=== PATIENT | male | born 1965 | race Caucasian/White ===

== ENCOUNTER 2016-10-04 07:30 | Emergency (ER) | payer OTHER ==
[~2016-10-04] VITALS: Ht 172.7 cm; Wt 92.7 kg
[~2016-10-04 07:30] MED LIST: FLUO10CA30 PO
[2016-10-04 07:33] VITALS: BP 182/91; PULSE 71; RESP 18; O2SAT 99
[2016-10-04] MEDS ORDERED: 0.9% Sodium Chloride 1,000 ML IV ONE ×2 (07:43→10:25)
[2016-10-04] MEDS ORDERED: Ondansetron 2 mg/mL 2 mL Inj IVPUSH ONE (07:45)
--- NOTE | 2016-10-04 07:46 | ED.REPORT ---
HPI-Abd Pain M 40 and Over Date of Service Oct 04, 2016 ED Provider: Melania Rg MD Pt is a 51 year old male with a history of fibromyalgia and possible gastritis who presents to the ED complaining of vomiting onset 2 days ago. He c/o associated nausea, subjective fever, abdominal pain, and chills. He denies any other symptoms. Pt reports he takes Tramadol and ibuprofen for fibromyalgia, but hasn't in the past couple days. He admits to using THC, but denies alcohol use. Nursing Notes Stated Complaint: NAUSEA Chief Complaint: Male Abdominal Pain Nursing Notes Reviewed: Yes Allergies: Coded Allergies: Penicillins (Verified Allergy, Unknown, 08/11/14) Scheduled Fluoxetine (Prozac) Unknown Strength Capsule 10 MG PO DAILY Ondansetron ODT (Ondansetron ODT) 4 Mg Tab.rapdis 4 MG PO TID Scheduled PRN oxyCODONE-Acetaminophen 5-325 mg (oxyCODONE-Acetaminophen 5-325 mg) 1 Each Tablet 1-2 TAB PO Q6H PRN PRN For Pain General Time Seen by MD: 07:43 Chief Complaint Other (Vomiting) Hx Obtained From: Patient Arrived By: Walk-in Sudden in Onset?: No Onset Occurred: 2 days ago Symptom Duration: Since onset Severity: Current: No pain currently Severity: Maximum: No pain Recent Healthcare: No recent doctor visit, No recent hospitalization Similar Sx Previous: No Past Medical History Past Medical History Notes: Patient seen on 08/11/2014 for abdominal pain thought to have possible gastritis, CT generally negative with incidental left stone, although a slightly enlarged gallbladder was noted without evidence of gallstones on CT. Past Medical History Fibromyalgia Past Surgical History denies Family History Mother of ovarian CA Smoking History Unknown if Ever Smoker Social History Alcohol Use: Denies alcohol use Drug Use: THC Other Social History: Local resident Ambulatory Status Independent Review of Systems Constitutional: Reports: Chills, Denies: Fever (Subjective fever) Respiratory: Denies: Non-productive cough GI: Reports: Abdominal pain, Nausea, Vomiting Complete sys rev & neg: except as marked. Physical Exam Initial Vital Signs Vital Signs (First) Date Time Temp Pulse Resp B/P Pulse Ox O2 Delivery O2 Flow Rate FiO2 10/04/16 07:33 36.8 71 18 182/91 99 10/04/16 08:17 Room Air Initial VS: Reviewed Head / Eyes: Atraumatic, Normocephalic Neck: Supple, Full range of motion Skin: Warm, Dry, No cyanosis Neurologic: Alert, Oriented, Nonfocal Psychiatric: Mood/affect normal, Behavior normal General/Constitutional: Awake, Alert, Cooperative Respiratory / Chest: Atraumatic, Breath sounds NL, Breath sounds = bilat Cardiovascular: Heart rate NL, Regular rhythm, Heart sounds NL Abdomen: Atraumatic, Soft, No guarding, No rebound Moderate tenderness in LUQ and diffuse mild tenderness with hypoactive bowel tones. Back: Atraumatic, Full range of motion, No CVA tenderness Lower Extremity / Pelvis / MS: No swelling, Neurologic intact, Vascular intact Interpretation & Diagnostics Lab Results Interpretation Result Diagram: 10/04/16 0745 10/04/16 0745 Test 10/04/16 07:45 10/04/16 10:39 White Blood Count 12.7th/mm3 (3.8-10.1) Red Blood Count 5.13mil/mm3 (4.40-5.80) Hemoglobin 15.8g/dL (13.8-17.2) Hematocrit 45.9% (41.0-50.0) Mean Corpuscular Volume 89.5fL (81-100) Mean Corpuscular Hemoglobin 30.8pg (27.0-35.0) Mean Corpuscular Hemoglobin Concent 34.4% (32.0-37.0) Red Cell Distribution Width 13.1% (12.3-15.4) Platelet Count 265bil/L (150-400) Neutrophils (%) (Auto) 73.2% (40-74) Lymphocytes (%) (Auto) 19.5% (14-46) Monocytes (%) (Auto) 6.5% (4-12) Eosinophils (%) (Auto) 0.2% (0-5) Basophils (%) (Auto) 0.4% (0-3) Sodium Level 137mEq/L (134-144) Potassium Level 4.0mEq/L (3.5-5.2) Chloride Level 101mEq/L (97-108) Carbon Dioxide Level 19mmol/L (18-29) Blood Urea Nitrogen 22mg/dL (6-24) Creatinine 0.93mg/dL (0.76-1.27) Estimat Glomerular Filtration Rate 92mL/min (>59) Glucose Level 119mg/dL (60-99) Calcium Level 9.3mg/dL (8.5-10.1) Magnesium Level 1.9mg/dL (1.6-2.6) Total Bilirubin 0.5mg/dL (0.0-1.2) Aspartate Amino Transf (AST/SGOT) 20U/L (0-50) Alanine Aminotransferase (ALT/SGPT) 18U/L (0-44) Alkaline Phosphatase 87U/L (25-150) Troponin T 0.010ug/L (0.0-0.011) Total Protein 7.5g/dL (6.4-8.4) Albumin 4.2g/dL (3.4-5.0) Lipase 200U/L (13-60) Hold Urine Received (Received) CT Abd / Pelvis Interpretation IMPRESSION: 1. No CT evidence for acute pancreatitis. No findings to explain acute abdominal pain. 2. Patchy premature aortoiliac atherosclerosis as before. 3. 5 mm nonobstructing left renal stone. Dictated by: Randy Oakley M.D. on 10/04/2016 at 10:03 Study type: Abdominal CT IV contrast Interpretation / Wet Read by: Interpret - Radiologist Re-Eval/Medical Decision Med Decision/Clinical Course neg UA dip Clinical exam and labs are most consistent with pancreatitis. No obvious etiology. Tramadol does not have pancreatitis listed as one of its main side effects does not take additional medications and denies alcohol. CT scan was unremarkable. He felt better with pain control nausea medicine and was sipping water without recurrent pain. Preferred to go home rather than be admitted. I told him that if this works, perfect. If not, he may end up needing to be admitted and would certainly help facilitate that were he to return to the emergency department Source of Hx: Old records Time of Eval: 10:16 Patient Status: Condition improved Re-Evaluation/Progress Note: Pt rechecked. Informed pt of lab results and need for CT. Pt understands and agrees with plan for CT. Imformed pt of plan for admission. All questions addressed. Time of Eval: 11:29 Re-Evaluation/Progress Note: Pt rechecked. Informed pt of plan for discharge. Pt understands and agrees with plan for discharge. F/U instructions and RTER warnings given. All questions addressed. Counseled Regarding: Diagnosis, Lab results, Need for follow-up, When/why to return to ED Discharge & Departure Primary Impression: Pancreatitis Chronicity: acute Pancreatitis type: unspecified pancreatitis type Acute pancreatitis complication: unspecified Qualified Code: K85.90 - Acute pancreatitis without necrosis or infection, unspecified Disposition: Home Vital Signs - All Vital Signs Date Time Temp Pulse Resp B/P Pulse Ox O2 Delivery O2 Flow Rate FiO2 10/04/16 11:58 36.8 75 12 117/77 97 Room Air 10/04/16 10:34 73 15 159/87 93 Room Air 10/04/16 09:51 93 16 176/113 98 Room Air 10/04/16 08:54 74 19 170/94 100 Room Air 10/04/16 08:17 65 16 180/94 100 Room Air 10/04/16 07:33 36.8 71 18 182/91 99 )( All Prior VS Reviewed: Yes Condition: Stable Patient Instructions: Pancreatitis (ED) Additional Instructions: You do have mild pancreatitis that is causing your vomiting and pain. You do not have an obvious reason for the pancreatitis. Your CT scan of your belly was quite reassuring. No mechanical or structural lesions were identified to be causing pancreatitis and there was no visible inflammation or swelling to your pancreas. The treatment for mild pancreatitis is resting the pancreas. He did this by not requiring your body to digest food. Please try and stick to water and clear liquids for the next 1-2 days. Increase your diet at you are able to tolerate. Use Zofran for nausea. Take Percocet 1-2 every 6 hours as needed for the pain. Do not drive or drink alcohol or consume acetaminophen while taking Percocet. Return to the Emergency department for any new or worsening symptoms. You may need to get admitted if you are unable to keep clear liquids down and have your pain controlled. I hope you feel better and do not need to return to the emergency department but if you do, we will be here for you. Referrals: [facility] Scribe Attestation Portions of this note were transcribed by Anna Watson. I, Dr. Rg personally performed the history, physical exam and medical decision-making; I reviewed and confirmed the accuracy of the information in the transcribed note. Signed by: Jd Trujillo, 7/10/17 and 12:50. copies to: [facility] Melania Rg MD Oct 04, 2016 07:46 Anna Barrett Oct 04, 2016 07:50
[2016-10-04 07:59] LABS: BASOPHILS % (AUTO) 0.4 % (0-3); EOSINOPHILS % (AUTO) 0.2 % (0-5); MONOCYTES % (AUTO) 6.5 % (4-12); Mean Corpuscular Hemoglobin 30.8 pg (27.0-35.0); Mean Corpuscular Volume 89.5 fL (81-100); NEUTROPHILS % (AUTO) 73.2 % (40-74); Platelet Count 265 bil/L (150-400)
[2016-10-04 08:17] VITALS: BP 180/94; PULSE 65; RESP 16; O2SAT 100
[2016-10-04 08:18] LABS: TROPONIN T 0.01 ug/L (0.0-0.011)
[2016-10-04] MEDS ORDERED: Haloperidol 5 mg/mL Inj IVPUSH ONE (08:25)
[2016-10-04 08:29] LABS: Magnesium 1.9 mg/dL (1.6-2.6)
[2016-10-04 08:54] VITALS: BP 170/94; PULSE 74; RESP 19; O2SAT 100
[2016-10-04] MEDS ORDERED: HYDROmorphone 1 mg/mL Inj IVPUSH ONE (09:25)
[2016-10-04 09:51] VITALS: BP 176/113; PULSE 93; RESP 16; O2SAT 98
[2016-10-04 10:34] VITALS: BP 159/87; PULSE 73; RESP 15; O2SAT 93
[2016-10-04] MEDS: HYDROmorphone 0.5 mg/0.5 mL iSecure Syringe IVPUSH PRN ×2 (10:34→11:58)
--- NOTE | 2016-10-04 11:10 | DRSVH ---
PROCEDURE: CT ABDOMEN AND PELVIS WITH CONTRAST ([id number]) INDICATIONS: 51 year-old male with abdominal pain and elevated lipase levels. TECHNIQUE: After the administration of intravenous contrast, 5 mm thick sections acquired from the diaphragm to the symphysis. 5 mm coronal and sagittal reformats were acquired. For radiation dose reduction, the following was used: automated exposure control, adjustment of mA and/or kV according to patient sievangelista e. COMPARISON: [facility], CT, ABD/PELVIS W/CON (PNL), 08/11/2014, 13:52. FINDINGS: Image quality: Excellent. ABDOMEN: Lung bases: Lung bases are clear, except for bibasilar atelectasis. Heart size is normal. Solid organs: Liver and spleen are normal in size and enhancement. Gallbladder wall thickness is no rmal. Biliary system is non dilated. Pancreas enhances normally, without peripancreatic inflammator y fat stranding or fluid collections. No adrenal nodules. Kidneys demonstrate normal size and enhan cement, without hydronephrosis. 5 mm nonobstructing left renal stone is again noted. Peritoneum and bowel: Bowel loops demonstrate normal wall thickness and caliber. The appendix appea rs normal on axial image 52. No free fluid or air. Nodes and vessels: No retroperitoneal or mesenteric adenopathy by size criteria. Aorta and inferior vena cava are normal in size, with mild aortoiliac atherosclerosis. Miscellaneous: No ventral hernias. PELVIS: Genitourinary: Bladder wall thickness is normal. Prostate gland is normal in size. Miscellaneous: No inguinal hernias or adenopathy. Bones: No suspicious bony lesions. No vertebral body compression fractures. There is lower lumbar and lower thoracic spine disc degeneration. IMPRESSION: 1. No CT evidence for acute pancreatitis. No findings to explain acute abdominal pain. 2. Patchy premature aortoiliac atherosclerosis as before. 3. 5 mm nonobstructing left renal stone. Dictated by: Randy Oakley M.D. on 10/04/2016 at 10:03 Approved by: Randy Oakley M.D. on 10/04/2016 at 10:09
[2016-10-04] MEDS ORDERED: ONDA4TAB12 PO (11:49)
[2016-10-04] MEDS ORDERED: OXYC1TAB24 PO (11:49)
[2016-10-04 11:58] VITALS: BP 117/77; PULSE 75; RESP 12; O2SAT 97
== END 2016-10-04 12:00 | disposition home or self-care (01) ==
LOC: SED 07:30
DX: K85.90 Acute pancreatitis without necrosis or infection, unspecified (principal); M79.7 Fibromyalgia; Z88.0 Allergy status to penicillin
CPT/HCPCS: 36415; 74177; 80053; 83690; 83735; 84484; 85025; 96361; 96374; 96375; 96376; 99285; J1170; J1200; J1630; J2405; J7030; Q9967